=== PATIENT | female | born 1960 | race Two or more races ===

== ENCOUNTER 2023-04-02 19:09 | Emergency (ER) | payer MEDICAID, OTHER ==
[~2023-04-02] VITALS: Ht 165.1 cm; Wt 58.0 kg
[2023-04-02 21:12] VITALS: BP 134/76
[2023-04-02] MEDS ORDERED: IBUPROFEN 800 MG TAB PO ONE (21:15)
[2023-04-02] MEDS ORDERED: TETANUS-DIPTH-ACEL PERTUSSIS 0.5ML SYR Tdap IM ONE (21:15)
== END 2023-04-02 22:38 | disposition home or self-care (01) ==
LOC: ER 19:09
DX: S90.512A Abrasion, left ankle, initial encounter (principal); K21.9 Gastro-esophageal reflux disease without esophagitis; W18.31XA Fall on same level due to stepping on an object, initial encounter; Y93.89 Activity, other specified; Y92.89 Other specified places as the place of occurrence of the external cause; Y99.8 Other external cause status
CPT/HCPCS: 73610; 90471; 90715